=== PATIENT | female | born 1990 | race Caucasian/White ===

== ENCOUNTER 2020-12-04 20:17 | Emergency (ER) | payer OTHER ==
[2020-12-04 20:22] VITALS: BP 120/76; PULSE 92; RESP 16; TEMP 98.3
--- NOTE | 2020-12-04 20:48 | ED ---
General Adult HPI - General Chief complaint: Shortness of Breath Stated complaint: SOB,Hx COVID Time Seen by Provider: 12/04/20 20:24 Source: patient Mode of arrival: ambulatory Limitations: no limitations - History of Present Illness Initial comments: Dictation was produced using [employer] dictation software. please excuse any grammatical, word or spelling errors. Chief Complaint: 30-year-old female presents to the emergency department for shortness of breath History of Present Illness: 30-year-old female she presents with shortness of breath. Patient was diagnosed with rotavirus 13 days ago. She states she still having shortness of breath. Denies any fevers. Patient has history of asthma. She states that her work suggested that she come to the emergency department to be evaluated. The ROS documented in this emergency department record has been reviewed and confirmed by me. Those systems with pertinent positive or negative responses have been documented in the HPI. All other systems are other negative and/or noncontributory. PHYSICAL EXAM: General Impression: Alert and oriented x3, not in acute distress HEENT: Normocephalic atraumatic, extra-ocular movements intact, pupils equal and reactive to light bilaterally, mucous membranes moist. Cardiovascular: Heart regular rate and rhythm Chest: Able to complete full sentences, no retractions, no tachypnea, also to auscultation bilaterally Abdomen: abdomen soft, non-tender, non-distended, no organomegaly Musculoskeletal: Pulses present and equal in all extremities, no peripheral edema Motor: no focal deficits noted Neurological: CN II-XII grossly intact, no focal motor or sensory deficits noted Skin: Intact with no visualized rashes Psych: Normal affect and mood ED course: 30-year-old female with residual shortness of breath after having Covid. Vital Signs upon arrival are within acceptable limits. Laboratory evaluation obtained showing no acute processes. Chest x-ray is clear. Patient reverted bedside at 9:20 PM found to be in stable medical c ondition. Patient not showing any signs of respiratory distress. Laboratory pulse ox is normal. Patient will be discharged. Patient requested workup. Work note provided. - Related Data Home Medications Medication Instructions Recorded Confirmed Budesonide-Formot 160-4.5 Mcg 1 puff INHALATION RT-BID 02/18/15 12/04/20 [Symbicort 160-4.5 Mcg Inhaler] Azithromycin [Zithromax Z-pack (6 See Taper PO DIRECTED 12/04/20 12/04/20 tabs)] Cetirizine HCl 10 mg PO DAILY PRN 12/04/20 12/04/20 Ergocalciferol (Vitamin D2) 1,250 mcg PO WEEKLY 12/04/20 12/04/20 [Drisdol (50,000 Iu)] Ipratropium-Albuterol Nebulize 3 ml INHALATION RT-QID PRN 12/04/20 12/04/20 [Duoneb 0.5 mg-3 mg/3 ml Soln] Isibloom 1 tab PO DAILY 12/04/20 12/04/20 Omeprazole 40 mg PO DAILY 12/04/20 12/04/20 Ondansetron Odt [Zofran Odt] 8 mg PO Q8HR PRN 12/04/20 12/04/20 predniSONE See Taper PO DIRECTED 12/04/20 12/04/20 Allergies Allergy/AdvReac Type Severity Reaction Status Date / Time cefaclor [From [facility]] Allergy Swelling Verified 12/04/20 20:56 strawberry Allergy Swelling Verified 12/04/20 20:56 Review of Systems ROS Statement: Those systems with pertinent positive or pertinent negative responses have been documented in the HPI. ROS Other: All systems not noted in ROS Statement are negative. Past Medical History Past Medical History: Asthma Additional Past Medical History / Comment(s): Vertigo History of Any Multi-Drug Resistant Organisms: None Reported Past Surgical History: Adenoidectomy, Section, Tonsillectomy Past Psychological History: Anxiety Smoking Status: Current every day smoker Past Alcohol Use History: None Reported Past Drug Use History: None Reported General Exam Limitations: no limitations Course Vital Signs 12/04/20 12/04/20 20:18 20:50 Temperature 98.3 F Pulse Rate 92 Respiratory 16 Rate Blood Pressure 120/76 O2 Sat by Pulse 99 96 Oximetry Medical Decision Making - Lab Data Result diagrams: 12/04/20 20:58 12/04/20 20:58 Lab Results 12/04/20 12/04/20 Range/Units 20:58 20:58 WBC 6.9 (3.8-10.6) k/uL RBC 4.24 (3.80-5.40) m/uL Hgb 13.8 (11.4-16.0) gm/dL Hct 40.2 (34.0-46.0) % MCV 94.8 (80.0-100.0) fL MCH 32.6 (25.0-35.0) pg MCHC 34.3 (31.0-37.0) g/dL RDW 12.4 (11.5-15.5) % Plt Count 332 (150-450) k/uL MPV 7.5 Neutrophils % 62 % Lymphocytes % 25 % Monocytes % 7 % Eosinophils % 3 % Basophils % 1 % Neutrophils # 4.3 (1.3-7.7) k/uL Lymphocytes # 1.7 (1.0-4.8) k/uL Monocytes # 0.5 (0-1.0) k/uL Eosinophils # 0.2 (0-0.7) k/uL Basophils # 0.0 (0-0.2) k/uL Sodium 140 (137-145) mmol/L Potassium 3.6 (3.5-5.1) mmol/L Chloride 105 (98-107) mmol/L Carbon Dioxide 25 (22-30) mmol/L Anion Gap 10 mmol/L BUN 12 (7-17) mg/dL Creatinine 0.66 (0.52-1.04) mg/dL Est GFR (CKD-EPI)AfAm >90 (>60 ml/min/1.73 sqM) Est GFR (CKD-EPI)NonAf >90 (>60 ml/min/1.73 sqM) Glucose 102 H (74-99) mg/dL Calcium 9.1 (8.4-10.2) mg/dL Disposition Clinical Impression: Dyspnea Disposition: HOME SELF-CARE Condition: Good Instructions (If sedation given, give patient instructions): Coronavirus Disease 2019 (COVID-19) Is patient prescribed a controlled substance at d/c from ED?: No Referrals: Simon Landa MD [Primary Care Provider] - 1-2 days
[2020-12-04 21:04] LABS: Basophils % (A) 1 %; Eosinophils # (A) 0.2 k/uL (0-0.7); Eosinophils % (A) 3 %; HCT 40.2 % (34.0-46.0); HGB 13.8 gm/dL (11.4-16.0); Lymphocytes # (A) 1.7 k/uL (1.0-4.8); Lymphocytes % (A) 25 %; MCH 32.6 pg (25.0-35.0); MCHC 34.3 g/dL (31.0-37.0); MCV 94.8 fL (80.0-100.0); Mean Platelet Volume 7.5; Monocytes # (A) 0.5 k/uL (0-1.0); Monocytes % (A) 7 %; Neutrophils # (A) 4.3 k/uL (1.3-7.7); Neutrophils % (A) 62 %; Platelet Count 332 k/uL (150-450); RBC 4.24 m/uL (3.80-5.40); RDW 12.4 % (11.5-15.5); WBC 6.9 k/uL (3.8-10.6)
--- NOTE | 2020-12-04 21:04 | XR ---
EXAMINATION TYPE: XR chest 1V portable DATE OF EXAM: 12/04/2020 COMPARISON: NONE HISTORY: Pneumonia TECHNIQUE: Single view FINDINGS: Heart and mediastinum are normal. Lungs are clear of infiltrate. Pulmonary vascularity is n ormal. Bony thorax and soft tissues appear normal. IMPRESSION: Normal chest.
[2020-12-04 21:13] LABS: African American GFR (CKD) >90 (>60 ml/min/1.73 sqM); Anion Gap 10 mmol/L; Blood Urea Nitrogen 12 mg/dL (7-17); Calcium 9.1 mg/dL (8.4-10.2); Carbon Dioxide 25 mmol/L (22-30); Chloride 105 mmol/L (98-107); Glucose 102 mg/dL (74-99); Non-African American GFR(CKD) >90 (>60 ml/min/1.73 sqM); Potassium 3.6 mmol/L (3.5-5.1); Sodium 140 mmol/L (137-145)
== END 2020-12-04 21:42 | disposition home or self-care (01) ==
LOC: EC 20:17
DX: R06.00 Dyspnea, unspecified (principal); R06.02 Shortness of breath; F17.200 Nicotine dependence, unspecified, uncomplicated; J45.909 Unspecified asthma, uncomplicated; Z79.51 Long term (current) use of inhaled steroids; Z86.16 Personal history of COVID-19; Z88.1 Allergy status to other antibiotic agents; Z91.018 Allergy to other foods
CPT/HCPCS: 36415; 71045; 80048; 85025; 99285

== ENCOUNTER 2021-01-02 02:23 | Emergency (ER) | payer OTHER ==
[2021-01-02 02:30] VITALS: TEMP 98.4
[2021-01-02] MEDS ORDERED: SODIUM CHLORIDE 0.9% 500 ML 500 ML IV STA (02:34)
[2021-01-02] MEDS ORDERED: ONDANSETRON 4 MG/2 ML VIAL IVP STA (02:34)
[2021-01-02 03:24] LABS: Basophils # (A) 0.1 k/uL (0-0.2); Basophils % (A) 1 %; Eosinophils # (A) 0.3 k/uL (0-0.7); Eosinophils % (A) 2 %; HCT 39.1 % (34.0-46.0); HGB 13.5 gm/dL (11.4-16.0); Lymphocytes # (A) 2.2 k/uL (1.0-4.8); Lymphocytes % (A) 19 %; MCHC 34.4 g/dL (31.0-37.0); MCV 95.7 fL (80.0-100.0); Monocytes # (A) 0.6 k/uL (0-1.0); Monocytes % (A) 5 %; Neutrophils # (A) 8.2 k/uL (1.3-7.7); Neutrophils % (A) 71 %; Platelet Count 406 k/uL (150-450); RBC 4.08 m/uL (3.80-5.40); RDW 13.1 % (11.5-15.5); WBC 11.6 k/uL (3.8-10.6)
[2021-01-02 04:12] LABS: ALT 14 U/L (4-34); AST 27 U/L (14-36); African American GFR (CKD) >90 (>60 ml/min/1.73 sqM); Albumin 3.8 g/dL (3.5-5.0); Alkaline Phosphatase 27 U/L (38-126); Anion Gap 7 mmol/L; Blood Urea Nitrogen 6 mg/dL (7-17); Carbon Dioxide 19 mmol/L (22-30); Chloride 108 mmol/L (98-107); Glucose 92 mg/dL (74-99); Non-African American GFR(CKD) >90 (>60 ml/min/1.73 sqM); Sodium 134 mmol/L (137-145); Total Bilirubin 0.5 mg/dL (0.2-1.3); Total Protein 6.4 g/dL (6.3-8.2)
[2021-01-02 04:39] LABS: Potassium 4.2 mmol/L (3.5-5.1)
[2021-01-02] MEDS ORDERED: DEXTROSE 5%-0.45% NACL 1,000 ML IV ONE (04:47)
--- NOTE | 2021-01-02 06:24 | ED ---
Nausea/Vomiting/Diarrhea HPI - General Chief complaint: Nausea/Vomiting/Diarrhea Stated complaint: Constipation, 7wks preg Time Seen by Provider: 01/02/21 02:33 Source: patient Mode of arrival: ambulatory Limitations: no limitations - History of Present Illness Initial comments: This patient is a 30-year-old woman who presents with complaint of having a pproximately 2 weeks of intermittent nausea and vomiting. She has also had occasional loose stool. The patient found out that she is and believes that is related to her nausea and vomiting. Today she was having difficult time keeping fluids down presents for evaluation. No significant abdominal pain or tenderness. No vaginal discharge or bleeding. No fever or chills. MD complaint: nausea, vomiting Onset/Timin -: week(s) Description of Vomiting: food contents Associated Abdominal Pain: No Radiation: none Consistency: constant Improves with: none Worsens with: none Associated Symptoms: nausea/vomiting - Related Data Home Medications Medication Instructions Recorded Confirmed Budesonide-Formot 160-4.5 Mcg 1 puff INHALATION RT-BID 02/18/15 12/04/20 [Symbicort 160-4.5 Mcg Inhaler] Azithromycin [Zithromax Z-pack (6 See Taper PO DIRECTED 12/04/20 12/04/20 tabs)] Cetirizine HCl 10 mg PO DAILY PRN 12/04/20 12/04/20 Ergocalciferol (Vitamin D2) 1,250 mcg PO WEEKLY 12/04/20 12/04/20 [Drisdol (50,000 Iu)] Ipratropium-Albuterol Nebulize 3 ml INHALATION RT-QID PRN 12/04/20 12/04/20 [Duoneb 0.5 mg-3 mg/3 ml Soln] Isibloom 1 tab PO DAILY 12/04/20 12/04/20 Omeprazole 40 mg PO DAILY 12/04/20 12/04/20 Ondansetron Odt [Zofran Odt] 8 mg PO Q8HR PRN 12/04/20 12/04/20 predniSONE See Taper PO DIRECTED 12/04/20 12/04/20 Previous Rx's Medication Instructions Recorded Doxylamine/Pyridoxine HCl (B6) 1 tab PO QID PRN #20 tab 01/02/21 [Debra Mandujano 10-10 mg Tablet] Allergies Allergy/AdvReac Type Severity Reaction Status Date / Time cefaclor [From [facility]] Allergy Swelling Verified 01/02/21 02:30 strawberry Allergy Swelling Verified 01/02/21 02:30 Review of Systems ROS Statement: Those systems with pertinent positive or pertinent negative responses have been documented in the HPI. ROS Other: All systems not noted in ROS Statement are negative. Constitutional: Denies: fever, chills, weakness Respiratory: Denies: cough, dyspnea Cardiovascular: Denies: chest pain, palpitations, edema Gastrointestinal: Reports: as per HPI, nausea, vomiting, diarrhea. Denies: abdominal pain, constipation, melena, hematochezia Genitourinary: Denies: dysuria, frequency, hematuria, discharge, abnormal menses Musculoskeletal: Denies: back pain Skin: Denies: rash Neurological: Denies: headache, weakness Past Medical History Past Medical History: Asthma Additional Past Medical History / Comment(s): Vertigo History of Any Multi-Drug Resistant Organisms: None Reported Past Surgical History: Adenoidectomy, Section, Tonsillectomy Past Psychological History: Anxiety Smoking Status: Current every day smoker Past Alcohol Use History: Occasional Past Drug Use History: Marijuana General Exam Limitations: no limitations General appearance: alert, in no apparent distress Head exam: Present: atraumatic, normocephalic Eye exam: Present: normal appearance. Absent: scleral icterus, conjunctival injection Neck exam: Present: normal inspection Respiratory exam: Present: normal lung sounds bilaterally. Absent: respiratory distress, wheezes, rales, rhonchi, stridor Cardiovascular Exam: Present: regular rate, normal rhythm, normal heart sounds GI/Abdominal exam: Present: soft. Absent: distended, tenderness, guarding, rebound, rigid, mass Extremities exam: Present: normal inspection, normal capillary refill Back exam: Present: normal inspection. Absent: CVA tenderness (R), CVA tenderness (L) Neurological exam: Present: alert Skin exam: Present: warm, dry, intact, normal color. Absent: rash Course Vital Signs 01/02/21 01/02/21 02:26 06:49 Temperature 98.4 F Pulse Rate 86 77 Respiratory 22 16 Rate Blood Pressure 124/82 132/77 O2 Sat by Pulse 97 98 Oximetry Medical Decision Making - Lab Data Result diagrams: 01/02/21 02:59 01/02/21 03:44 Lab Results 01/02/21 01/02/21 Range/Units 02:59 03:44 WBC 11.6 H (3.8-10.6) k/uL RBC 4.08 (3.80-5.40) m/uL Hgb 13.5 (11.4-16.0) gm/dL Hct 39.1 (34.0-46.0) % MCV 95.7 (80.0-100.0) fL MCH 33.0 (25.0-35.0) pg MCHC 34.4 (31.0-37.0) g/dL RDW 13.1 (11.5-15.5) % Plt Count 406 (150-450) k/uL MPV 7.0 Neutrophils % 71 % Lymphocytes % 19 % Monocytes % 5 % Eosinophils % 2 % Basophils % 1 % Neutrophils # 8.2 H (1.3-7.7) k/uL Lymphocytes # 2.2 (1.0-4.8) k/uL Monocytes # 0.6 (0-1.0) k/uL Eosinophils # 0.3 (0-0.7) k/uL Basophils # 0.1 (0-0.2) k/uL Sodium 134 L (137-145) mmol/L Potassium 4.2 (3.5-5.1) mmol/L Chloride 108 H (98-107) mmol/L Carbon Dioxide 19 L (22-30) mmol/L Anion Gap 7 mmol/L BUN 6 L (7-17) mg/dL Creatinine 0.47 L (0.52-1.04) mg/dL Est GFR (CKD-EPI)AfAm >90 (>60 ml/min/1.73 sqM) Est GFR (CKD-EPI)NonAf >90 (>60 ml/min/1.73 sqM) Glucose 92 (74-99) mg/dL Calcium 9.0 (8.4-10.2) mg/dL Total Bilirubin 0.5 (0.2-1.3) mg/dL AST 27 (14-36) U/L ALT 14 (4-34) U/L Alkaline Phosphatase 27 L (38-126) U/L Total Protein 6.4 (6.3-8.2) g/dL Albumin 3.8 (3.5-5.0) g/dL Disposition Clinical Impression: Vomiting affecting Disposition: HOME SELF-CARE Condition: Good Instructions (If sedation given, give patient instructions): Acute Nausea and Vomiting (ED) Prescriptions: Doxylamine/Pyridoxine HCl (B6) [Diclegis Dr 10-10 mg Tablet] 1 tab PO QID PRN #20 tab PRN Reason: Nausea Is patient prescribed a controlled substance at d/c from ED?: No Referrals: Simon Landa MD [Primary Care Provider] - 1-2 days
[2021-01-02] MEDS ORDERED: MAGNESIUM CITRATE 296 ML BOTTLE PO ONE (06:43)
[2021-01-02 06:50] VITALS: BP 132/77; PULSE 77; RESP 16
== END 2021-01-02 06:50 | disposition home or self-care (01) ==
LOC: EC 02:23
DX: O21.9 Vomiting of pregnancy, unspecified (principal); O26.891 Other specified pregnancy related conditions, first trimester; R19.7 Diarrhea, unspecified; O99.511 Diseases of the respiratory system complicating pregnancy, first trimester; J45.909 Unspecified asthma, uncomplicated; O99.331 Smoking (tobacco) complicating pregnancy, first trimester; F17.200 Nicotine dependence, unspecified, uncomplicated; Z91.018 Allergy to other foods; Z88.1 Allergy status to other antibiotic agents; Z79.51 Long term (current) use of inhaled steroids; Z3A.01 Less than 8 weeks gestation of pregnancy
CPT/HCPCS: 99284; 96374; 96361; 36415; 80053; 85025; J2405; 96375